=== PATIENT | male | born 1955 | race African-American/Black ===

== ENCOUNTER 2024-08-01 18:03 | Emergency (ER) | payer OTHER ==
[~2024-08-01] VITALS: Ht 182.9 cm; Wt 70.0 kg
[2024-08-01 18:06] VITALS: O2SAT 99
[2024-08-01] MEDS ORDERED: TOPUD MT (21:40)
[2024-08-01] MEDS ORDERED: ASPI-740 PO (21:40)
[2024-08-01] MEDS ORDERED: MULT-1116 MT (21:40)
[2024-08-01] MEDS ORDERED: ALBU90AE INH (21:40)
[2024-08-01] MEDS: ACETAMINOPHEN 325MG TABLET PO ONE (21:45)
[2024-08-01 22:07] VITALS: BP 118/76; PULSE 74; RESP 16; TEMP 36.61404; O2SAT 99
[2024-08-02] MEDS ORDERED: TOPUD MT (12:27)
== END 2024-08-01 22:13 | disposition home or self-care (01) ==
LOC: ER 18:03
DX: F20.9 Schizophrenia, unspecified (principal); Z76.0 Encounter for issue of repeat prescription; Z79.899 Other long term (current) drug therapy
CPT/HCPCS: 99283

== ENCOUNTER 2024-08-02 00:33 | Emergency (ER) | payer OTHER, MEDICAID ==
[~2024-08-02] VITALS: Ht 182.9 cm; Wt 60.0 kg
[~2024-08-02 00:33] MED LIST: ALBU90AE INH; ASPI-740 PO; MULT-1116 MT; TOPUD MT
[2024-08-02 01:25] VITALS: O2SAT 99
[2024-08-02 04:06] LABS: BASOPHILS % 0.3 % (0.0-2.0); EOSINOPHILS % 2.1 % (0.0-5.0); HEMATOCRIT. 37.2 % (42.0-52.0); HEMOGLOBIN. 12.5 g/dL (14.0-18.0); LYMPHOCYTES % 18.3 % (20.0-50.0); MEAN CORPUSCULAR HEMOGLOBIN 30.6 pg (28.0-32.0); MEAN CORPUSCULAR HGB CONC 33.5 g/dL (31.0-37.0); MEAN CORPUSCULAR VOLUME 91.4 fL (80.0-94.0); MEAN PLATELET VOLUME 8.2 fl (7.4-10.4); MONOCYTES % 7.1 % (2.0-8.0); NEUTROPHILS % 72.2 % (40.0-76.0); PLATELET 188 x1000/uL (130-400); RED BLOOD CELL COUNT 4.07 mill/uL (4.7-6.1)
[2024-08-02 04:19] LABS: CHLORIDE 111 mEq/L (98-107); POTASSIUM 4.2 mEq/L (3.5-5.1); SODIUM 143 mEq/L (136-145)
[2024-08-02 04:20] LABS: CARBON DIOXIDE 23 mEq/L (21-32)
[2024-08-02 04:21] LABS: CALCIUM 9.7 mg/dL (8.7-10.4)
[2024-08-02 04:25] LABS: GLUCOSE 93 mg/dL (70-105); UREA NITROGEN BLOOD 14 mg/dL (9-23)
[2024-08-02 04:27] LABS: ACETAMINOPHEN < 2 ug/mL (10-30)
[2024-08-02 04:54] LABS: ETHANOL BLOOD < 10 mg/dL (<10)
[2024-08-02 04:56] VITALS: BP 121/69; PULSE 60; RESP 17; TEMP 36.66960; O2SAT 99
[2024-08-02] MEDS ORDERED: TOPUD MT (12:27)
== END 2024-08-02 05:02 | disposition home or self-care (01) ==
LOC: ER 00:33
DX: F32.A Depression, unspecified (principal); F20.9 Schizophrenia, unspecified; J45.909 Unspecified asthma, uncomplicated; Z59.00 Homelessness unspecified
CPT/HCPCS: 36415; 80048; 80307; 80320; 80329; 85025; 99283; G0480

== ENCOUNTER 2024-08-02 05:12 | Emergency (ER) | payer OTHER, MEDICAID ==
[~2024-08-02] VITALS: Ht 182.9 cm; Wt 60.0 kg
[2024-08-02 05:15] VITALS: O2SAT 100
[2024-08-02 05:22] VITALS: BP 128/78; PULSE 84; RESP 16; TEMP 97.9; O2SAT 99
[2024-08-02] MEDS: MAGNESIUM/ALUMINUM HYDROXIDE/SIMETHICONE 30ML UDC PO ONE (08:51)
[2024-08-02] MEDS ORDERED: TOPUD MT (12:27)
== END 2024-08-02 08:51 | disposition home or self-care (01) ==
LOC: ER 05:12
DX: F20.9 Schizophrenia, unspecified (principal); J45.909 Unspecified asthma, uncomplicated; Z59.00 Homelessness unspecified; Z79.899 Other long term (current) drug therapy
CPT/HCPCS: 99282

== ENCOUNTER 2024-08-02 09:25 | Emergency (ER) | payer OTHER, MEDICAID ==
[~2024-08-02] VITALS: Ht 177.8 cm; Wt 73.0 kg
[2024-08-02 09:28] VITALS: BP 118/73; TEMP 98.6; O2SAT 99
[2024-08-02 09:29] VITALS: PULSE 85; RESP 16; O2SAT 100
[2024-08-02] MEDS ORDERED: TOPUD MT (12:27)
== END 2024-08-02 17:39 | disposition left against medical advice (07) ==
LOC: ER 09:25
DX: B34.9 Viral infection, unspecified (principal); J45.909 Unspecified asthma, uncomplicated; Z79.82 Long term (current) use of aspirin; Z86.59 Personal history of other mental and behavioral disorders
CPT/HCPCS: 99282

== ENCOUNTER 2024-08-02 15:06 | Emergency (ER) | payer OTHER, MEDICAID ==
[~2024-08-02] VITALS: Ht 185.4 cm; Wt 69.0 kg
[2024-08-02 15:14] VITALS: BP 109/68; PULSE 98; RESP 17; TEMP 98.6; O2SAT 100; O2SAT 99
== END 2024-08-02 19:22 | disposition home or self-care (01) ==
LOC: ER 15:06
DX: F19.90 Other psychoactive substance use, unspecified, uncomplicated (principal); J45.909 Unspecified asthma, uncomplicated; Z59.00 Homelessness unspecified; Z79.899 Other long term (current) drug therapy
CPT/HCPCS: 99281